=== PATIENT | female | born 1960 | race Caucasian/White ===

== ENCOUNTER 2024-07-09 04:40 | Day surgery (SDC) | payer OTHER ==
[2024-07-02 14:49] VITALS: BMI 33.4
[2024-07-09 12:44] VITALS: TEMP 98.3
[2024-07-09 12:45] VITALS: RESP 18
[2024-07-09 13:37] VITALS: BP 119/62; PULSE 73
== END 2024-07-09 13:28 | disposition home or self-care (01) ==
LOC: JASU-ENDO 04:40
PROVIDERS: ATTEND Internal Medicine Gastroenterology
PROC: 0DJD8ZZ Inspection of Lower Intestinal Tract, Via Natural or Artificial Opening Endoscopic (ICD-10-PCS; principal; 2024-07-09 10:00)
DX: Z12.11 Encounter for screening for malignant neoplasm of colon (principal); K64.8 Other hemorrhoids
CPT/HCPCS: 82962